=== PATIENT | female | born 1990 | race Two or more races ===

== ENCOUNTER 2019-03-10 08:25 | Emergency (ER) | payer OTHER ==
[2019-03-10 10:19] VITALS: BP 95/51
--- NOTE | 2019-03-11 07:30 | ED ---
Nausea/Vomiting/Diarrhea HPI - HPI Summary HPI Summary: Patient is a 28-year-old female who presents emergency department for evaluation after eating undercooked piece. Patient notes she is 28 weeks . Pt. states she ate undercook beef for dinner last night. Notes she had one episode of vomiting today and mild abd. cramping. Pt. denies fever, diarrhea, vaginal bleeding. Pt.'s ate same meal and is without sxs. Pt. is concerned she may have contracted an infection from meat that will affect her baby. Sxs are mild in severity. No current modifying factors. - History of Current Complaint Chief Complaint: EDNauseaVomitDiarrh Stated Complaint: FOOD POISONING PER PT Time Seen by Provider: 03/10/19 08:37 Hx Obtained From: Patient Pain Intensity: 2 Pain Scale Used: 0-10 Numeric - Allergies/Home Medications Allergies/Adverse Reactions: Allergies Allergy/AdvReac Type Severity Reaction Status Date / Time No Known Allergies Allergy Verified 03/10/19 08:30 Home Medications: Home Medications Calcium Polycarbophil [Fiber Tabs] 625 mg PO DAILY 03/10/19 [History Confirmed 03/10/19] Docosahexanoic Acid [Dha [place] 3] 100 mg PO DAILY 03/10/19 [History Confirmed ] Levothyroxine TAB* [Synthroid TAB*] 75 mcg PO 0800 03/10/19 [History Confirmed 03/10/19] Pnv No.95/Ferrous Fum/Folic AC [ Vitamin/Iron 28-0.8 mg] 1 tab PO DAILY 03/10/19 [History Confirmed 03/10/19] PMH/Surg Hx/FS Hx/Imm Hx Previously Healthy: Yes Infectious Disease History: No Infectious Disease History: Denies: Traveled Outside the [place] in Last 30 Days - Family History Known Family History: Positive: Non-Contributory - Social History Occupation: Student Lives: With Family Alcohol Use: None Substance Use Type: Reports: None Smoking Status (MU): Never Smoked Tobacco Review of Systems Constitutional: Negative Negative: Fever, Chills Cardiovascular: Negative Respiratory: Negative Positive: Vomiting - x1, Other - Mild abd. cramping. . Negative: Diarrhea Genitourinary: Negative Negative: dysuria All Other Systems Reviewed And Are Negative: Yes Physical Exam Vital Signs On Initial Exam: Initial Vitals Temp Pulse Resp BP Pulse Ox 97.7 F 81 18 118/65 100 03/10/19 08:26 03/10/19 08:26 03/10/19 08:26 03/10/19 08:26 03/10/19 08:26 Procedures - Sedation Patient Received Moderate/Deep Sedation with Procedure: No Diagnostics - Vital Signs Vital Signs Temp Pulse Resp BP Pulse Ox 03/10/19 10:19 98.2 F 76 14 95/51 99 03/10/19 10:06 95/51 03/10/19 10:05 77 99 03/10/19 09:19 86 102/55 97 03/10/19 09:01 78 97 03/10/19 08:50 78 98 03/10/19 08:49 74 100/56 98 03/10/19 08:26 97.7 F 81 18 118/65 100 - Laboratory Lab Statement: Any lab studies that have been ordered have been reviewed, and results considered in the medical decision making process. Naus/Vom/Diarrhea Course/Dx - Course Course Of Treatment: Pt. presenting after one episode of vomiting. No fever or diarrhea. Pt. notes she is feeling well in ER and has since tolerated POs. Pt. very anxious about potential of ed a bacterial infection. Case discussed with oncall OB, Dr. Grigsby, who agrees no further evalutation needed since pt. is tolerating POs and has had no diarrhea. OB nurse documented heart tones of 144bpm. Pt. reassured. Advised to f.u with OB for ongoing concerns and return to er for diarrhea, fever, persistent vomiting. Pt. understands and agrees with plan. - Differential Dx/Diagnosis Differential Diagnoses - Female: Gastroenteritis (Viral), Gastroenteritis ( Bacterial), Vomiting Provider Diagnosis: Nausea & vomiting Condition At Discharge: Good Discharge ED - Sign-Out/Discharge Documenting (check all that apply): Patient Departure - Discharge Plan Condition: Good Disposition: HOME Patient Education Materials: Acute Nausea and Vomiting (ED), Food Poisoning (ED ) Referrals: [facility] - Denise KIRKLANDll [Primary Care Provider] - Taty Grigsby MD [Medical Doctor] - Additional Instructions: Schedule a follow up appointment with OB if you have ongoing concerns Increase fluids Return to ER for ongoing vomiting, fever, increased abdominal pain, or bloody diarrhea, or if concerned - Billing Disposition and Condition Condition: GOOD Disposition: Home - Attestation Statements Provider Attestation: the patient was seen by the midlevel provider, it was determined by them that it was not necessary for me to see the patient, I was available for consult during the patient's visit in the ED. I did not establish and patient-physician relationship. The chart however has been reviewed and I am signing in an administrative capacity.
== END 2019-03-10 10:19 | disposition home or self-care (01) ==
LOC: ED 08:25
DX: R11.2 Nausea with vomiting, unspecified (principal); Z79.890 Hormone replacement therapy; Z79.899 Other long term (current) drug therapy
CPT/HCPCS: 99282

== ENCOUNTER 2019-05-30 05:38 | Inpatient (IN) | payer OTHER ==
[2019-05-30] MEDS ORDERED: Lactated Ringers 1000 ML Bag* 1,000 ML IV ONE ×2 (07:24→17:01)
[2019-05-30] MEDS ORDERED: Buffered Lidocaine 1% SYRIN* 1 ML/SYRINGE INTRADERM ONE (07:24)
--- NOTE | 2019-05-30 07:30 | HP ---
General Information - Reason for Visit Leaking Fluid - General Information Maternal Age: 28 Grav: 2 Para: 1 SAB: 0 IEA: 0 Estimated Due Date: 05/29/19 Determined By: LMP Gestational Age in Weeks/Days: 40 06/03 Maternal Blood Type and Rh: O Positive - Results this Serology/RPR Result: Non-Reactive Rubella Result: Non-Immune HBsAg Result: Negative HIV Result: Negative GBS Culture Result: Negative Past Medical History Delivery History: Hx Uncomplicated Vaginal Delivery Pertinent Past Medical History: See Records Past Medical History Comment: hypothyroidism, on replacement Pertinent Past Surgical History: None Pertinent Family History: Non-Contributory - Antepartal Records Antepartal Records: Reviewed, Complicated by: - Varicella nonimmune, hypothyroidism Review of Systems Constitutional: Uncomfortable CV Complaint: No Respiratory: Shortness of Breath: No Gastrointestinal: No Nausea/Vomiting, Normal Bowel Movement Genitourinary: Leaking Fluid, No Dysuria, No Bleeding Musculoskeletal: No Epigastric Pain, Contractions Neurological: No Headache, No Visual Changes Movement: Normal Exam Allergies/Adverse Reactions: Allergies No Known Allergies Allergy (Verified 03/10/19 08:30) B/P: 118/56, P: 66, R: 14, T: 98.0 Lab Values - Entire Visit: Laboratory Tests 05/30/19 05:55 Vag Amniotic Fld Detect Positive - Measurements Height: 5 ft 6 in Weight: 167 lb Weight in lbs: 167.062374 Body Mass Index (BMI): 26.9 Pre- Weight: 147 lb Weight Gained This : 20 lbs and 0 ozs - Exam Breast: Breast Exam Deferred CVA: No CVA Tenderness Extremities: No Edema Heart: Normal Rhythm/Heart Sounds HEENT: No Significant Findings Lungs: Clear Bilaterally Reflexes: DTR 2+ Thyroid: No Thyromegaly - Abdominal Exam Abdomen Exam: Non-Tender, Fundal Height Consistent with Dates - Ultrasound/Biophysical Profile Ultrasound Status: Not Done Targeted Exam Findings See L&D Outpatient Visit Provider Note for Findings: N/A Estimated Weight: 6.5 lb by leopolds Membrane Status: SROM Amniotic Fluid Evaluation: Positive ROM Plus Bleeding/Discharge: None EFM Findings - External Monitor Findings Baseline Heart Rate: 130 External Monitor Findings: Accelerations Present, No Pattern of Variable or Late Decelerations, Variability Moderate, Baseline Stable Contractions: Regular, Mild, Moderate, 45-90 Seconds Contraction Frequency: q7min Assessment/Plan - Assessment A: IUP at 40 1/7 weeks Category I FHR, no evidence of metabolic acidemia GBS negative SROM to clear fluid at 0530 P: Admit to inpatient Desires epidural eventually, will start IV & draw labs Reassess PRN Anticipate SVB - Plan Plan: Admit - Anticipate Vaginal Delivery - Date/Time of Admission Date of Admission: 05/30/19 Time of Admission: 06:00
[2019-05-30 07:55] LABS: ABS Lymphocytes 1.7 10^3/ul (1.0-4.8); ABS Monocytes 0.5 10^3/ul (0-0.8); ABS Neutrophils 11.6 10^3/ul (1.5-7.7); Eosinophil % 0.2 %; Hematocrit 36 % (35-47); Hemoglobin 12.3 g/dL (12.0-16.0); Lymphocyte % 12.4 %; Mean Corpuscular HGB Conc 34 g/dL (31-36); Mean Corpuscular Hemoglobin 32 pg (27-31); Mean Corpuscular Volume 95 fL (80-97); Mean Platelet Volume 8.8 fL (7.4-10.4); Platelet Count 239 10^3/uL (150-450); Red Blood Count 3.82 10^6 /uL (3.70-4.87); Red Cell Distribution Width 13 % (10-15); White Blood Count 13.8 10^3/uL (3.5-10.8)
[2019-05-30] MEDS ORDERED: Lactated Ringers 1000 ML Bag* 1,000 ML IV SCH ×3 (08:00→18:00)
[2019-05-30 08:10] LABS: Urine Benzodiazepine Screen None Detected (None Detect); Urine Opiates Screen None Detected (None Detect)
--- NOTE | 2019-05-30 08:54 | PN ---
Progress Note - Progress Note Date of Service: 05/30/19 Note: S: Feeling well, starting to be a little more uncomfortable but reports ctx are not painful. O: VE deferred, patient declined for now FHT 150, +accels, mod cesar, no further decels after bolus UCs q 3-7 mn VSS, afebrile A: IUP @ 40+1 weeks gestation Spontaneous rupture of membranes No evidence acidemia P: Patient would like to ambulate to encourage contractions. Will consider cervical exam in approx 2 hours.
--- NOTE | 2019-05-30 11:16 | PN ---
Progress Note - Progress Note Date of Service: 05/30/19 Note: S: Feeling pretty good, thinks contractions are slightly stronger. O: VE 1cm/50%/ballotable UCs q 6-10min FHT 135, +accels, mod cesar, no decels VSS A: IUP @ 40+1 weeks gestation, in early labor Ruptured membranes Cat 1 FHT P: Discussed used of pitocin for augmentation; patient would consider but prefers to continue to try ambulation, yoga ball to continue to encourage active labor. Will reassess with change in ctx pattern, desire for pain medication or approx 12 hours post rupture.
[2019-05-30] MEDS ORDERED: OBEPIDURAL* 250 ML EPIDURAL ONE (15:41)
--- NOTE | 2019-05-30 15:44 | PN ---
Progress Note - Progress Note Date of Service: 05/30/19 Note: S: Patient reports strong regular contractions after two rounds of nipple stimulation with hand pump. O: VE 6cm/80%/0 FHT 140, + accels, no decels, mod cesar UCs q 3-4 min A: IUP @ 40+2 weeks gestation in active labor No evidence acidemia P: Patient desires epidural, anesthesia paged to department. Anticipate SVB
[2019-05-30] MEDS ORDERED: Lactated Ringers 1000 ML Bag* 500 ML IV PRN ×2 (17:01)
[2019-05-30] MEDS ORDERED: Sodium Citrate/Citric Acid* 15 ML UDC PO PRN (17:01)
[2019-05-30] MEDS ORDERED: Phenylephrine 40 MCG/ML SYRINGE IV PUSH PRN ×2 (17:01)
[2019-05-30] MEDS ORDERED: Famotidine TAB* 20 MG PO PRN (17:01)
--- NOTE | 2019-05-30 17:44 | PN ---
Progress Note - Progress Note Date of Service: 05/30/19 Note: S: Patient very comfortable with epidural. O: VE deferred FHT 135, +accels, no decels, mod cesar UCs q 3-6 min VSS, afebrile A: IUP in labor No evidence acidemia P: Will recheck cervix in approx 2 hours if no change or with increased pressure /pain reported by patient. Encourage side to side position changes.
[2019-05-30] MEDS ORDERED: OBEPIDURAL* 250 ML EPIDURAL SCH (18:00)
[2019-05-30] MEDS ORDERED: Oxytocin in LR* 20 UNITS/1,000 ML BAG IVPB ONE (18:19)
[2019-05-30] MEDS ORDERED: Acetaminophen TAB* 325 MG PO PRN (18:47)
[2019-05-30] MEDS ORDERED: Glycerin ADULT SUPP PR PRN (18:47)
[2019-05-30] MEDS ORDERED: Witch Hazel PAD* JAR TOPICAL PRN (18:47)
[2019-05-30] MEDS ORDERED: Dibucaine 1% 28.35 GM TUBE PR PRN (18:47)
[2019-05-30] MEDS ORDERED: Oxytocin in LR* 20 UNITS/1,000 ML BAG IVPB SCH (19:00)
--- NOTE | 2019-05-30 19:19 | PROCNOTE ---
[facility] OB: Delivery Note - Delivery A Date of : 05/30/19 Time of : 18:16 Sex: Female - "Phoebe" Score 1 Minute: 9 Score 5 Minutes: 10 Gestational Age in Weeks and Days at Delivery: 40 Weeks and 1 Days Delivery Method: Spontaneous Vaginal Labor: Spontaneous Estimated Blood Loss: 400 Anesthesia/Analgesia: CEI for Labor Delivered By: Hamzah Armijo - Nursery Level of Nursery: Regular/Bedside - Perineum Perineal Injury: 1st Degree Perineal Repair: By Delivering Practioner - Events Delivery Events of Note: Pitocin Only After Delivery - Additional Delivery Notes Additional Delivery Notes: Patient admitted with spontaneous rupture of membranes with slow progression in early labor. Patient used breast pump for nipple stimulation for two 20-minute sessions with excellent response and active labor. Asked for and received epidural after 4 attempts, good pain relief. Length of active labor 4'24", pushed 24 min. Baby born OA to OLIVIA into dad's hands, with CNM support. Delivered to maternal abdomen with spontaneous cry. Cord clamped and cut by FOB once pulsations ceased. Placenta delivered with gentle cord traction. Membranes appear intact, 3VC. Perineal repair as above. Baby at breast to initiate feeding. Mother and baby stable.
[2019-05-30] MEDS: Docusate CAP* 100 MG PO SCH (23:00)
[2019-05-31] MEDS: Levothyroxine TAB* 75 MCG TAB PO SCH (07:39)
[2019-05-31] MEDS ORDERED: Varicella Virus Vaccine Live* 0.5 ML VIAL SUBCUT ONE (09:00)
[2019-05-31] MEDS ORDERED: Measles, Mumps,Rubella VACC* 0.5 ML/VIAL SUBCUT ONE (09:00)
[2019-05-31] MEDS: Docusate CAP* 100 MG PO SCH ×3 (09:30→21:47)
[2019-05-31 11:43] LABS: ABS Lymphocytes 1.9 10^3/ul (1.0-4.8); ABS Monocytes 0.9 10^3/ul (0-0.8); ABS Neutrophils 12.4 10^3/ul (1.5-7.7); Eosinophil % 0.1 %; Hematocrit 31 % (35-47); Hemoglobin 10.5 g/dL (12.0-16.0); Lymphocyte % 12.5 %; Mean Corpuscular HGB Conc 34 g/dL (31-36); Mean Corpuscular Hemoglobin 33 pg (27-31); Mean Corpuscular Volume 96 fL (80-97); Mean Platelet Volume 8.9 fL (7.4-10.4); Platelet Count 216 10^3/uL (150-450); Red Cell Distribution Width 13 % (10-15); White Blood Count 15.3 10^3/uL (3.5-10.8)
[2019-05-31] MEDS: Ferrous Gluconate TAB* 324 MG TAB PO SCH ×2 (12:59→19:48)
[2019-05-31] MEDS: Ibuprofen TAB* 600 MG PO PRN (21:47)
[2019-06-01] MEDS: Levothyroxine TAB* 75 MCG TAB PO SCH (06:38)
[2019-06-01 07:59] VITALS: BP 123/61
[2019-06-01] MEDS: Docusate CAP* 100 MG PO SCH (08:42)
[2019-06-01] MEDS: Ibuprofen TAB* 600 MG PO PRN (08:42)
== END 2019-06-01 12:00 | disposition home or self-care (01) | DRG 807 ==
LOC: MCHOBOUT 05:38 → MCHOB 06:29
PROVIDERS: ADMIT Midwife; ATTEND Midwife
PROC: 10E0XZZ Delivery of Products of Conception, External Approach (ICD-10-PCS; principal; 2019-05-30)
PROC: 0HQ9XZZ Repair Perineum Skin, External Approach (ICD-10-PCS; 2019-05-30)
DX: O99.284 Endocrine, nutritional and metabolic diseases complicating childbirth (principal); Z37.0 Single live birth; E03.9 Hypothyroidism, unspecified; O48.0 Post-term pregnancy; O70.0 First degree perineal laceration during delivery; Z3A.40 40 weeks gestation of pregnancy
CPT/HCPCS: 36415; 80307; 84112; 85025; 86850; 86900; 86901; 90707; A9270-GY